=== PATIENT | female | born 1995 | race Two or more races ===

== ENCOUNTER 2022-09-20 09:12 | Emergency (ER) | payer MEDICAID ==
[~2022-09-20] VITALS: Ht 152.4 cm; Wt 59.0 kg
[2022-09-20 09:27] VITALS: BP 120/75
--- NOTE | 2022-09-20 09:44 | NUR ---
Pt NO Longer in Room. Unable to locate- Eloped. notified
[2022-09-20] MEDS ORDERED: MAG HYDROX/AL HYDROX/SIMETH 30 ML UDC PO ONE (10:00)
[2022-09-20] MEDS ORDERED: ONDANSETRON 4 MG TAB.RAPDIS SL ONE (10:00)
[2022-09-20] MEDS ORDERED: FAMOTIDINE (20 MG) 20 MG TABLET PO ONE (10:00)
[2022-09-20 10:55] LABS: BILIRUBIN,URINE 1+ (NEGATIVE); COLOR,URINE DARK YELLOW (YELLOW); LEUKOCYTE ESTERASE ,URINE NEGATIVE (NEGATIVE); NITRITE, URINE NEGATIVE (NEGATIVE); PROTEIN,URINE TRACE mg/dl (NEGATIVE); UGLUCOSE NEGATIVE (NEGATIVE)
[2022-09-20 11:18] LABS: BACTERIA,URINE Many /HPF (None Seen); SQUAMOUS EPITHELIAL CELL,UR Few /HPF (None Seen)
== END 2022-09-20 10:02 | disposition home or self-care (01) ==
LOC: ER 09:16
DX: R10.9 Unspecified abdominal pain (principal); M25.512 Pain in left shoulder
CPT/HCPCS: 81001; 84703-TC; 87086-TC

== ENCOUNTER 2024-02-21 16:57 | Emergency (ER) | payer MEDICAID, OTHER ==
[~2024-02-21] VITALS: Ht 149.9 cm; Wt 65.3 kg
[2024-02-21] MEDS: METHADONE HCL (40MG) 40 MG TABLET.SOL PO STA (17:27)
[2024-02-21] MEDS ORDERED: BUPRENORPHINE HCL 8 MG TAB.SUBL SL ONE (17:28)
[2024-02-21] MEDS: BUPRENORPHINE HCL 8 MG TAB.SUBL SL ONE (17:31)
[2024-02-21 17:44] VITALS: BP 123/77; TEMP 98.3; O2SAT 97
== END 2024-02-21 17:45 ==
LOC: ER 17:00
DX: O26.893 Other specified pregnancy related conditions, third trimester (principal); F11.23 Opioid dependence with withdrawal; F17.200 Nicotine dependence, unspecified, uncomplicated; Z88.1 Allergy status to other antibiotic agents